=== PATIENT | female | born 1990 | race Caucasian/White ===

== ENCOUNTER 2016-09-12 00:38 | Emergency (ER) | payer MEDICAID ==
--- NOTE | 2016-09-12 00:59 | Emergency Department Record ---
History of Present Illness - General Chief Complaint: Headache Migraine Stated Complaint: MIGRAINE Time Seen by Provider: 09/12/16 00:58 Source: Patient Mode of Arrival: Ambulatory Limitations: No limitations - History of Present Illness Initial Comments: The patient is here due to having a migraine WATTS for the last 3 days. The onset was during the day a few days ago and the pain has gradually worsened. The pain is located mainly on the R side and is painful at the base of the neck. The pain does radiate to the R tenriism area. She has had intermittent nausea, vomiting, and photophobia. She denies any visual changes, fever, chills, neck stiffness or arm or leg numbness, tingling or trouble walking. The patient has a LONG hx of migraine WATTS's similar to this and does see a Neurologist and has had an MRI and EEG. MD Complaint: Headache Onset/Timin -: Days(s) Onset Description: Gradual Location: Frontal, Occipital, Retro-orbital, Right, Temporal Severity scale (1-10): 8 Quality: Similar to previous headaches Consistency: Constant Improves With: Nothing Worsens With: Light, Movement of head/neck, Noise Associated Symptoms: Nausea, Photophobia, Sensitivity to sound, Vomiting, Other Treatments Prior to Arrival: Migraine medication Treatment Prior to Arrival Comment:: Excedrine 0900, Maxalt 1200 and Imitrex 1430 - Related Data Home Medications Medication Instructions Recorded Confirmed Last Taken Rizatriptan Benzoate [Maxalt Tipple Repairer] 10 mg PO ASDIR PRN 12/26/13 09/12/16 09/11/16 Sumatriptan Succinate 6 mg SQ ASDIR PRN 12/26/13 09/12/16 09/11/16 Fluoxetine HCl [Fluoxetine HCl] 150 mg PO DAILY 01/05/14 09/12/16 09/11/16 Loratadine 10 mg PO DAILY 01/28/16 09/12/16 09/11/16 Omeprazole 20 mg PO ASDIR 01/28/16 09/12/16 09/11/16 Topiramate [Topamax] 100 mg PO DAILY 01/28/16 09/12/16 09/11/16 Allergies Allergy/AdvReac Type Severity Reaction Status Date / Time gabapentin [From Neurontin] Allergy HEADACHE Unverified 04/23/16 10:23 acetaminophen [From [place]] AdvReac VOMITING Unverified 04/23/16 10:23 hydrocodone bitartrate AdvReac VOMITING Unverified 04/23/16 10:23 [From [place]] latex AdvReac HIVES Unverified 04/23/16 10:23 Travel Screening - Travel/Exposure Within Last 30 Days Have you traveled within the last 30 days?: No - Travel Symptoms Symptom Screening: Headache Review of Systems Constitutional: Denies: Chills, Fever, Other ENT: Denies: Congestion Respiratory: Denies: Cough, Dyspnea Past Medical History - SOCIAL HISTORY Smoking Status: Never smoker Alcohol Use: None Drug Use: None - RESPIRATORY Hx Respiratory Disorders: No - CARDIOVASCULAR Hx Cardio Disorders: No - NEURO Hx Neuro Disorders: Yes Hx Headaches: Yes Hx Seizures: Yes - GI Hx GI Disorders: Yes Hx Reflux: Yes Comment:: fatty liver - Hx Genitourinary Disorders: No - ENDOCRINE Hx Endocrine Disorders: No - MUSCULOSKELETAL Hx Musculoskeletal Disorders: No - PSYCH Hx Psych Problems: Yes Hx Anxiety: Yes Hx Depression: Yes - HEMATOLOGY/ONCOLOGY Hx Hematology/Oncology Disorders: No Family Medical History Any Significant Family History?: Yes Hx Cancer: Grandparents Hx Diabetes: Father Hx HTN: Father Physical Exam - General General Appearance: Alert, Oriented x3, Cooperative, No acute distress - Head Head exam: Atraumatic, Normocephalic, Normal inspection - Eye Eye exam: Normal appearance, PERRL - ENT Throat exam: Normal inspection. negative: Tonsillar erythema, Tonsillar exudate - Neck Neck exam: Normal inspection, Full ROM. negative: Meningismus (The neck is very supple.), Tenderness - Respiratory Respiratory exam: Normal lung sounds bilaterally. negative: Respiratory distress - Cardiovascular Cardiovascular Exam: Regular rate, Normal rhythm, Normal heart sounds - GI/Abdominal GI/Abdominal exam: Soft, Normal bowel sounds. negative: Tenderness - Extremities Extremities exam: Normal inspection, Full ROM, Normal capillary refill. negative: Tenderness - Neurological Neurological exam: Alert, Normal gait, Oriented X3, Other (Neg Drift and Rhomberg exams.). negative: Abnormal gait, Altered, Motor sensory deficit - Psychiatric Psychiatric exam: negative: Agitated, Anxious, Depressed Course Vital Signs 09/12/16 00:55 Temperature 98.7 F Pulse Rate [ 90 Pulse Ox Probe] Respiratory 18 Rate Blood Pressure 121/90 [Left Arm] Pulse Ox 98 - Reevaluation(s) Reevaluation #1: The patient is doing better. She is resting comfortably. 09/12/16 01:50 Reevaluation #2: The patient is sleeping at this time. She is resting comfortably. 09/12/16 02:10 Reevaluation #3: The patient is doing much better. Her WATTS is 90% improved and she is ready for home. 09/12/16 02:26 Disposition Disposition: Discharge Clinical Impression: Migraine Qualifiers: Migraine type: unspecified Status migrainosus presence: without status migrainosus Intractability: not intractable Qualified Code(s): G43.909 - Migraine, unspecified, not intractable, without status migrainosus Disposition: Home, Self-Care Condition: (1) Good Instructions: Migraine Headache (ED) Additional Instructions: Please continue your regular medicines. Please see your family doctor if not better in 2-3 days. Return to the ER for any increased pain, fever or vomiting. Forms: Patient Portal Access Time of Disposition: 02:25
[2016-09-12] MEDS: 0.9 % SODIUM CHLORIDE 1,000 ML BAG IV ONE (01:29)
[2016-09-12] MEDS: METOCLOPRAMIDE HCL 10 MG/2 ML VIAL IVP ONE (01:30)
[2016-09-12] MEDS: DIPHENHYDRAMINE HCL IV 50 MG/ML VIAL IVP ONE (01:30)
[2016-09-12] MEDS: KETOROLAC 30 MG/ML VIAL IVP ONE (01:30)
== END 2016-09-12 02:34 | disposition home or self-care (01) ==
LOC: ER 00:38
DX: G43.909 Migraine, unspecified, not intractable, without status migrainosus (principal); R11.2 Nausea with vomiting, unspecified; H53.149 Visual discomfort, unspecified
CPT/HCPCS: 99284 ×2; 96374; 96375; J1885; J1200; J2765; J7030

== ENCOUNTER 2016-10-12 08:05 | Emergency (ER) | payer MEDICAID ==
--- NOTE | 2016-10-12 08:13 | Emergency Department Record ---
History of Present Illness - General Chief Complaint: Headache Migraine Stated Complaint: HEADACHE/? PINK EYE Time Seen by Provider: 10/12/16 08:08 Source: Patient Mode of Arrival: Ambulatory Limitations: No limitations - History of Present Illness Initial Comments: 26 yo female presents with a headache. She reports a prior history of migraines. She has a neurologist and reports prior works with MRI. She tried her typical medications without full relief. This migraine is left sided. It is associated with light sensitivity and noise sensitivity. She has nausea. No fever or trauma. No new or atypical features. No vision changes She additional reports irritation to the right eye this morning with redness and slight crusting. No vision loss. She does not wear contacts. MD Complaint: "Migraine" -: Days(s) (2) Onset Description: Gradual Location: Left Severity: Moderate Quality: Aching Consistency: Constant Improves With: Nothing Worsens With: Light Associated Symptoms: Nausea Treatments Prior to Arrival: Migraine medication - Related Data Home Medications Medication Instructions Recorded Confirmed Last Taken Rizatriptan Benzoate [Maxalt Manager Labor Delivery] 10 mg PO ASDIR PRN 12/26/13 10/12/16 09/11/16 Sumatriptan Succinate 6 mg SQ ASDIR PRN 12/26/13 10/12/16 09/11/16 Fluoxetine HCl [Fluoxetine HCl] 150 mg PO DAILY 01/05/14 10/12/16 09/11/16 Loratadine 10 mg PO DAILY 01/28/16 10/12/16 09/11/16 Omeprazole 20 mg PO ASDIR 01/28/16 10/12/16 09/11/16 Topiramate [Topamax] 100 mg PO DAILY 01/28/16 10/12/16 09/11/16 Allergies Allergy/AdvReac Type Severity Reaction Status Date / Time gabapentin [From Neurontin] Allergy HEADACHE Unverified 04/23/16 10:23 acetaminophen [From [place]] AdvReac VOMITING Unverified 04/23/16 10:23 hydrocodone bitartrate AdvReac VOMITING Unverified 04/23/16 10:23 [From [place]] latex AdvReac HIVES Unverified 04/23/16 10:23 Review of Systems Constitutional: Denies: Chills, Fever, Malaise, Weakness Eyes: Reports: Eye discharge, Eye pain, Photophobia. Denies: Vision change ENT: Denies: Congestion, Dental pain, Ear pain, Epistaxis, Throat pain Respiratory: Denies: Cough, Dyspnea, Hemoptysis, Stridor, Wheezes Cardiovascular: Denies: Chest pain, Syncope Endocrine: Denies: Fatigue Gastrointestinal: Denies: Diarrhea Genitourinary: Denies: Dysuria, Hematuria, Retention, Urgency Musculoskeletal: Denies: Arthralgia, Back pain, Myalgia, Neck pain Skin: Denies: Bruising, Change in color, Rash Neurological: Reports: Headache. Denies: Abnormal gait, Confusion, Numbness, Tingling, Vertigo, Weakness Psychiatric: Denies: Anxiety Hematological/Lymphatic: Denies: Blood Clots, Easy bleeding, Easy bruising, Swollen glands Past Medical History - SOCIAL HISTORY Smoking Status: Never smoker Drug Use: None - RESPIRATORY Hx Respiratory Disorders: No - CARDIOVASCULAR Hx Cardio Disorders: No - NEURO Hx Neuro Disorders: Yes Hx Headaches: Yes Hx Seizures: Yes - GI Hx GI Disorders: Yes Hx Reflux: Yes Comment:: fatty liver - Hx Genitourinary Disorders: No - ENDOCRINE Hx Endocrine Disorders: No - MUSCULOSKELETAL Hx Musculoskeletal Disorders: No - PSYCH Hx Psych Problems: Yes Hx Anxiety: Yes Hx Depression: Yes - HEMATOLOGY/ONCOLOGY Hx Hematology/Oncology Disorders: No Family Medical History Hx Cancer: Grandparents Hx Diabetes: Father Hx HTN: Father Physical Exam - General General Appearance: Alert, Oriented x3, Cooperative, No acute distress Limitations: No limitations - Head Head exam: Atraumatic, Normocephalic, Normal inspection - Eye Eye exam: PERRL, Conjunctival injection (mild on the right), EOMI. negative: Normal appearance, Periorbital swelling, Periorbital tenderness, Scleral icterus Pupils: Normal accommodation. negative: Unequal - ENT ENT exam: Normal exam, Mucous membranes moist, Normal orophraynx, TM's normal bilaterally Ear exam: Normal external inspection Nasal Exam: Normal inspection Mouth exam: Normal external inspection Teeth exam: Normal inspection Throat exam: Normal inspection - Neck Neck exam: Normal inspection, Full ROM. negative: Lymphadenopathy, Meningismus , Tenderness - Respiratory Respiratory exam: Normal lung sounds bilaterally. negative: Respiratory distress, Rhonchi, Stridor, Wheezes - Cardiovascular Cardiovascular Exam: Regular rate, Normal rhythm, Normal heart sounds Peripheral Pulses: 2+: Radial (R), Radial (L) - GI/Abdominal GI/Abdominal exam: Soft. negative: Tenderness - Rectal Rectal exam: Deferred - exam: Deferred - Extremities Extremities exam: Normal inspection, Full ROM, Normal capillary refill. negative: Pedal edema, Tenderness - Back Back exam: Reports: Normal inspection, Full ROM. Denies: Muscle spasm, Rash noted, Tenderness - Neurological Neurological exam: Alert, CN II-XII intact, Normal gait, Oriented X3. negative : Altered, Motor sensory deficit - Psychiatric Psychiatric exam: Normal affect, Normal mood. negative: Agitated, Anxious - Skin Skin exam: Dry, Intact, Normal color, Warm Course - Reevaluation(s) Reevaluation #1: Polytrim provided for the conjunctivitis Typical migraine symptoms without new symptoms from past migraines. 10/12/16 08:21 Reevaluation #2: The patient reports good improvement DC home with instructions for follow up and return She has all her medications at home and does not need a refill 10/12/16 09:36 Disposition Disposition: Discharge Clinical Impression: Migraine Qualifiers: Migraine type: unspecified Status migrainosus presence: without status migrainosus Intractability: not intractable Qualified Code(s): G43.909 - Migraine, unspecified, not intractable, without status migrainosus Conjunctivitis Qualifiers: Conjunctivitis type: unspecified Disposition: Home, Self-Care Condition: (1) Good Instructions: Migraine Headache (ED), Conjunctivitis (ED) Additional Instructions: Rest and stay well hydrated Return if you have any new or uncontrolled symptoms Call your doctor first of the week for close follow up of this ER visit 2 drops of Polytrim every 4 hours to the eye. Take for one more day than you have redness. This is contagious. Forms: Patient Portal Access Time of Disposition: 09:37
[2016-10-12] MEDS ORDERED: 0.9 % SODIUM CHLORIDE 1,000 ML BAG IV ONE (08:18)
[2016-10-12] MEDS ORDERED: METOCLOPRAMIDE HCL 10 MG/2 ML VIAL IVP ONE (08:18)
[2016-10-12] MEDS ORDERED: DIPHENHYDRAMINE HCL IV 50 MG/ML VIAL IVP ONE (08:18)
[2016-10-12] MEDS ORDERED: KETOROLAC 30 MG/ML VIAL IVP ONE (08:18)
[2016-10-12] MEDS ORDERED: POLYMYXIN B SULF/TRIMETHOPRIM 10ML BTL OPTH ONE (08:19)
== END 2016-10-12 10:13 | disposition home or self-care (01) ==
LOC: ER 08:05
DX: G43.909 Migraine, unspecified, not intractable, without status migrainosus (principal); R11.0 Nausea; H10.9 Unspecified conjunctivitis
CPT/HCPCS: 99284 ×2; 96374; 96375; J1885; J1200; J2765; J7030

== ENCOUNTER 2017-04-30 13:31 | Emergency (ER) | payer SELFPAY ==
[2017-04-30] MEDS: 0.9 % SODIUM CHLORIDE 1,000 ML BAG IV ONE (13:35)
[2017-04-30] MEDS: ONDANSETRON HCL IV 4 MG/2 ML VIAL IVP ONE (14:17)
[2017-04-30 14:26] LABS: BASO % 0.1 % (0-6); EOS % 0.1 % (0-6); GRAN % 74.1 % (47-80); HEMATOCRIT 36.3 % (35.0-47.0); HEMOGLOBIN 12.8 gm/dl (11.6-16.0); LYMPH % 18.7 % (16-45); MEAN CORPUSCULAR HGB CONC 35.3 g/dl (32-36); MEAN PLATELET VOLUME 8.9 fl (7.4-10.4); PLATELET COUNT 259 K/uL (130-400); RED BLOOD COUNT 4.27 M/uL (3.80-5.40); RED CELL DISTRIBUTION WIDTH 12.5 % (11.5-14.5); WHITE BLOOD COUNT W/O DIFF 7.2 K/uL (4.2-12.2)
[2017-04-30 14:33] LABS: BLOOD UREA NITROGEN 14 mg/dL (6-20); CREATININE 0.7 mg/dL (0.5-0.9); EST GLOMERULAR FILTRATION RATE > 60 mL/min
[2017-04-30 14:36] LABS: GLUCOSE,RANDOM 166 mg/dL (74-109)
[2017-04-30 14:39] LABS: CREATINE PHOSPHOKINASE 54 U/L (26-192); LIPASE 20 U/L (13-60)
[2017-04-30 14:41] LABS: CKMB < 1.0 ng/mL (<3.77)
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
[2017-04-30] MEDS: KETOROLAC 30 MG/ML VIAL IVP ONE (15:35)
[2017-04-30 15:39] LABS: URINE APPEARANCE CLEAR; URINE BILIRUBIN NEGATIVE (NEGATIVE); URINE BLOOD NEGATIVE (NEGATIVE); URINE COLOR YELLOW; URINE GLUCOSE (UA) NEGATIVE (NEGATIVE); URINE KETONE NEGATIVE (NEGATIVE); URINE LEUKOCYTE ESTERASE NEGATIVE (NEGATIVE); URINE NITRITE NEGATIVE (NEGATIVE); URINE PROTEIN NEGATIVE (NEGATIVE); URINE UROBILINOGEN 0.2 E.U./dL (0.20 - 1.00)
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
== END 2017-04-30 16:20 | disposition home or self-care (01) ==
LOC: ER 13:31
DX: S16.1XXA Strain of muscle, fascia and tendon at neck level, initial encounter (principal); S80.01XA Contusion of right knee, initial encounter; R07.89 Other chest pain; M54.5 Low back pain; V48.6XXA Car passenger injured in noncollision transport accident in traffic accident, initial encounter; Y92.410 Unspecified street and highway as the place of occurrence of the external cause
CPT/HCPCS: 71010; 71110; 72100; 72125; 80048; 80320; 81003; 82550; 82553; 83690; 83874; 84703; 85025; 93005; 93010; 96374; 96375; 99284; J1885; J2405; J7030

== ENCOUNTER 2017-05-04 16:18 | Emergency (ER) | payer MEDICAID ==
[2017-05-04] MEDS ORDERED: 0.9 % SODIUM CHLORIDE 1,000 ML BAG IV ONE (16:44)
[2017-05-04] MEDS ORDERED: METOCLOPRAMIDE HCL 10 MG/2 ML VIAL IVP ONE (16:44)
[2017-05-04] MEDS ORDERED: DIPHENHYDRAMINE HCL IV 50 MG/ML VIAL IVP ONE (16:44)
[2017-05-04] MEDS ORDERED: KETOROLAC 30 MG/ML VIAL IVP ONE ×2 (16:44→17:51)
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
--- NOTE | 2017-05-05 08:10 | CT SCAN REPORT ---
EXAM: HEAD CT WITHOUT CONTRAST HISTORY: LOWER NECK PAIN, FRONTAL HEADACHE FOR THREE DAYS. TECHNIQUE: Contiguous axial images from the cerebral convexities to the foramen magnum were obtained without contrast. Comparison: Head CT 09/26/15. FINDINGS: The brain volume is normal. No acute intracranial hemorrhage, mass effect, or midline shift. No CT evidence of acute infarct. The ventricles, basal cisterns and sulci are within normal limits. Mild mucosal thickening in the ethmoid air cells. The osseous structures and soft tissues are unremarkable. IMPRESSION: 1. NORMAL HEAD CT. 2. MILD MUCOSAL THICKENING IN THE ETHMOID AIR CELLS. JOB NUMBER: [id number] [facility]
== END 2017-05-04 18:31 | disposition home or self-care (01) ==
LOC: ER 16:18
DX: G43.909 Migraine, unspecified, not intractable, without status migrainosus (principal); H53.149 Visual discomfort, unspecified; R11.2 Nausea with vomiting, unspecified; M54.2 Cervicalgia
CPT/HCPCS: 99284 ×2; 96376; 96374; 96375; 96361; 70450; J1885; J1200; J2765; J7030